=== PATIENT | male | born 1990 | race Caucasian/White ===

== ENCOUNTER 2016-10-31 03:53 | Emergency (ER) | payer BC, OTHER ==
[~2016-10-31] VITALS: Ht 177.8 cm; Wt 108.9 kg
[~2016-10-31 03:53] MED LIST: ALBU17AE3 IH; DOXY100C2 PO; IBUP-1780 PO; METH4TAB PO; NAPR-243 PO; SULF1TAB35 PO; TRM50T PO
--- OUTSIDE RECORDS SUMMARY | 2016-10-31 03:59 | XMS REPORT | Continuity of Care Document ---
Author Author [facility] Organization [facility] Address Unknown Phone Unavailable Care Team Providers Care Supervisor Special Services Name Role Phone NO, LOCAL PHYSICIAN PCP Unavailable Insurance Providers Payer Name Policy Number Subscriber Name Relationship [employer] [id number] David Ho Jr 19 Self / Same As Patient [facility] [id number] David Ho Jr 19 Self / Same As Patient Advance Directives Directive Response Recorded Date/Time Advance Directives No 03/11/16 6:25am Health Care Power of Stage Settings Painter No 03/11/16 6:25am Organ Donor No 03/11/16 6:25am Resuscitation Status Full Code 03/11/16 6:25am Chief Complaint and Reason for Visit Chief Complaint Upper Extremity Reason for Visit Strain of right shoulder Problems Active Problems Medical Problem Onset Date Status Strain of right shoulder Unknown Acute Medications Current Home Medications Medication Dose Units Route Directions Days/Qty Instructions Start Date Ibuprofen 800 Mg 800 Mg Oral Every 8HRS as needed for Pain 20 03/11/16 Past Home Medications Medication Directions Ordered Status Naproxen 500 Mg Tablet, 1 Each Oral Three Times A Day And Prn 10/12/10 Discontinued Naproxen 500 Mg Tablet, 1 Each Oral Three Times A Day And Prn 06/25/11 Discontinued Doxycycline Hyclate (Vibramycin) 100 Mg Capsule, 1 Each Oral Twice A Day 16/09 Discontinued Methylprednisolone 4 Mg/Dose-Pack Tab.ds.pk, 0 Oral As Directed 02/15/12 Discontinued Albuterol 17 Gm Inh, 2 [place] Inhalation Q 4 Hours as needed 02/15/12 Discontinued Social History Social History Problem Response Recorded Date/Time Alcohol Use Denies Use 03/11/2016 6:25am Recreational Drug Use No 03/11/2016 6:25am Recent Foreign Travel No 03/11/2016 6:25am Recent Infectious Disease Exposure No 03/11/2016 6:25am Comments smokes e-cig 03/11/2016 6:25am Smoking Status Current Everyday Smoker 03/11/2016 6:25am Query Response Start Date Stop Date Smoking Status Current Everyday Smoker Hospital Discharge Instructions No hospital discharge instructions. Plan of Care Discharge Date 03/11/16 7:11am Disposition 01 HOME, SELF-CARE Condition at Discharge Improved Instructions/Education Provided Muscle Strain (ED) Prescriptions See Medication Section Referrals SOPHIA THAKKAR,LOCAL PHYSICIAN - Primary Care Physician Additional Instructions/Education Sling for right shoulder this weekend for light duty at work. Follow-up with work comp on Sunday. Tylenol and/or ibuprofen for pain. Return if any problems or questions. All discharge instructions reviewed with patient and/or family. Voiced understanding. Functional Status No functional status results. Allergies, Adverse Reactions, Alerts No known allergies. Immunizations No immunization records. Vital Signs Acute Vital Signs Vital Response Date/Time Temperature (Fahrenheit) 98.0 degrees F (97.6 - 99.5) 03/11/2016 7:11am Temperature (Calculated Celsius) 36.89306 degrees C (36.4 - 37.5) 03/11/2016 7:11am Temperature Source Temporal 03/11/2016 7:11am Pulse Rate (adult) 80 bpm (60 - 90) 03/11/2016 7:11am Respiratory Rate 18 bpm (12 - 24) 03/11/2016 7:11am O2 Sat by Pulse Oximetry 97 % (88 - 100) 03/11/2016 7:11am Blood Pressure 125/74 mm Hg 03/11/2016 7:11am Blood Pressure Mean 94 mm Hg 03/11/2016 6:25am Pain Pain Intensity 8 03/11/2016 7:11am Height (Feet) 5 feet 03/11/2016 6:25am Height (Inches) 9 inches 03/11/2016 6:25am Height (Calculated Centimeters) 175.000836 cm 03/11/2016 6:25am Weight (Pounds) 220 pounds 03/11/2016 6:25am Weight (Calculated Kilograms) 99.768057 kilograms 03/11/2016 6:25am Height 5 ft 9 in Weight 220 lb Body Mass Index 32.5 kg/m^2 Results No known relevant diagnostic tests, laboratory data and/or discharge summary. Procedures No known history of procedures. Encounters Encounter Location Arrival/Admit Date Discharge/Depart Date Attending Provider Departed Emergency Room [facility] 03/11/16 6:18am 03/11 7:11am VALENTINE KATHLEEN MD Recent Diagnosis
--- NOTE | 2016-10-31 04:05 | ED Back Pain ---
General Stated Complaint: LOWER RT SIDE PAIN,STRAIN Source of Information: Patient, RN Notes Reviewed Exam Limitations: No Limitations History of Present Illness Time Seen by Provider: 04:05 Initial Comments As below Location: Other (Right groin area) Timing/Duration: 1-3 Hours Severity: Moderate Pain/Injury Location: Other (right groin ) Method of Injury: Other (was lifting @ the time and felt a pop in his right groin area) Modifying Factors: Improves With Other (nothing helps c/ pain; certain movements/twisting on RLE increases his pain) Associated Symptoms: denies symptoms Allergies and Home Medications Allergies Coded Allergies: No Known Drug Allergies (Unverified , 10/12/10) Home Medications Diclofenac Potassium 50 Mg Tablet #30 50 MG PO Q6H Prescribed by: LEONIE SNEED on 10/31/16 0459 Sulfamethoxazole/Trimethoprim 1 Each Tablet #10 1 EACH PO BID Prescribed by: OMER RAMIREZ on 05/16/161929 Constitutional: see HPI Musculoskeletal: see HPI other (right groin pain) All Other Systems Reviewed Negative Unless Noted: Yes (Negative excepted noted.) Past Ahxctzv-Akkelc-Jouwdk Hx Patient Social History Type Used: Electronic/Vapor Recent Foreign Travel: No Contact w/Someone Who Travel: No Recent Hopitalizations: No Surgeries HX Surgeries: No Respiratory Hx Respiratory Disorders: No Cardiovascular Hx Cardiac Disorders: No Neurological Hx Neurological Disorders: No Reproductive System Hx Reproductive Disorders: No Genitourinary Hx Genitourinary Disorders: No Gastrointestinal Hx Gastrointestinal Disorders: No Musculoskeletal Hx Musculoskeletal Disorders: No Endocrine Hx Endocrine Disorders: No HEENT HX ENT Disorders: No Cancer Hx Cancer: No Psychosocial Hx Psychiatric Problems: No Blood Transfusions Hx Blood Disorders: No Physical Exam Vital Signs Vital Sign - Last 12Hours 10/31/16 04:08 Temp 96.6 Pulse 102 Resp 18 B/P 133/93 Pulse Ox 97 O2 Delivery Room Air Capillary Refill : General Appearance: No Apparent Distress WD/WN Obese Cardiovascular: Regular Rate, Rhythm Respiratory: No Respiratory Distress Extremity: Normal Inspection Neurologic/Psychiatric: Alert Oriented x3 No Motor/Sensory Deficits Skin: Warm/Dry Lymphatic: No Adenopathy Progress/Results/Core Measures Results/Orders My Orders Orders-LEONIE SNEED DO Ct Pelvis Wo (10/31/16 04:08) Naproxen Tablet (Naprosyn Tablet) (10/31/16 05:00) Rx-Tramadol Hcl (Rx-Ultram) (10/31/16 04:55) Rx-Naproxen (Rx-Naprosyn) (10/31/16 05:30) Rx-Naproxen (Rx-Naprosyn) (10/31/16 05:17) Vital Signs/I&O Vital Sign - Last 12Hours 10/31/16 10/31/16 04:08 05:22 Temp 96.6 96.6 Pulse 102 95 Resp 18 18 B/P 133/93 Pulse Ox 97 97 O2 Delivery Room Air Diagnostic Imaging Diagonstic Imaging: CT Plain Films/CT/US/NM/MRI: pelvis Reviewed: Reviewed [place] Study (nothing acute) Departure Impression Impression: Primary Impression: Strain of right quadriceps muscle, fascia and tendon, initial encounter Disposition: 01 HOME, SELF-CARE Condition: Stable Departure-Patient Inst. Decision time for Depature: 04:57 Referrals: JUDAH OWENS MD Patient Instructions: Lower Extremity Muscle Strain (DC) Add. Discharge Instructions: WILL NEED TO FOLLOW UP WITH YOUR COMPANIES WORK COMP PHYSICIAN IF NOT DOING BETTER IN THE NEXT 5-7 DAYS. MAY NEED A MRI IF CONDITION FAILS TO IMPROVE/ RESOLVE. Scripts Diclofenac Potassium 50 Mg Imrupa30 Mg PO Q6H leg/groin pain #30 TAB Ref 0 Prov:LEONIE SNEED DO 10/31/16 LEONIE SNEED DO Oct 31, 2016 04:05
[2016-10-31] MEDS ORDERED: RX-TRAMADOL 50 MG (ULTRAM) TAB PPK#4 PO STA (04:55)
[2016-10-31] MEDS ORDERED: DICL50TA4 PO (04:59)
[2016-10-31] MEDS ORDERED: NAPROXEN 250 MG (NAPROSYN) TABLET PO ONE (05:00)
[2016-10-31] MEDS ORDERED: RX-NAPROXEN (NAPROSYN) 250 MG TAB PPK#4 PO ONE ×2 (05:17→05:30)
[2016-10-31 05:22] VITALS: BP 133/93
--- NOTE | 2016-10-31 08:41 | Diagnostic Imaging Report ---
PROCEDURE: CT pelvis without contrast. TECHNIQUE: Multiple contiguous axial images were obtained through the pelvis without the use of intravenous contrast. Sagittal and coronal reformations were performed. INDICATION: Lower right pelvic pain. FINDINGS: A portion of the appendix is visualized in the upper right pelvis and appears normal. The urinary bladder is normal. There is no free fluid or fluid collection of significance seen in the pelvis. There is no inguinal hernia. No enlarged pelvic or inguinal lymph nodes are seen. Small sclerotic foci in the right acetabulum and in the left femoral neck are most likely related to bony islands. There is degenerative change seen in the L5-S1 disc. IMPRESSION: No acute process. Dictated by: Dictated on workstation # [id number]
== END 2016-10-31 05:22 | disposition home or self-care (01) ==
LOC: EDUNIT# 03:53 → ER 03:55
DX: S76.111A Strain of right quadriceps muscle, fascia and tendon, initial encounter (principal); X50.9XXA Other and unspecified overexertion or strenuous movements or postures, initial encounter; Y93.B3 Activity, free weights; Y99.8 Other external cause status
CPT/HCPCS: 72192; 99283

== ENCOUNTER 2018-10-10 02:01 | Emergency (ER) | payer OTHER, BC | END 2018-10-10 03:19 | disposition home or self-care (01) | LOC: ER 02:01 ==

== ENCOUNTER 2020-10-12 04:21 | Emergency (ER) | payer BC, OTHER ==
[~2020-10-12] VITALS: Ht 177.8 cm; Wt 136.0 kg
[~2020-10-12 04:21] MED LIST changes: +DICL50TA4 PO; +NAPR-915 PO
--- NOTE | 2020-10-12 04:42 | ED Chest Pain ---
General Chief Complaint: Chest Pain Stated Complaint: CHEST PAIN Source: patient History of Present Illness Date Seen by Provider: Oct 12, 2020 Time Seen by Provider: 04:32 Initial Comments PT ARRIVES VIA POV FROM HOME C/O RIGHT UPPER CHEST PAIN SINCE 2018--IS [place] AREA OF PAIN WOKE UP AT 0130 WITH CHEST PAIN AND COULD NOT GET BACK TO SLEEP CONTINUING PROBLEM SINCE 2018, AND IS IN THE EXACT SAME SPOT ALL THE TIME PAIN IS CONSTANT, NEVER GOES AWAY, BUT VARIES IN INTENSITY. HAS BEEN WORSE THE LAST 3 DAYS. RATES PAIN 4/10 AT WORST, RATES 1/10 NOW. IS WORSE WITH LAYING FLAT--IMPROVED BY STANDING UP AND WALKING AROUND. OCCASIONALLY IS WORSE WITH CERTAIN POSITIONS OR MOVEMENTS DENIES ANY GI SYMPTOMS AT THIS TIME, BUT STATES HE FREQUENTLY HAS "HEARTBURN" WITH CERTAIN FOODS--SPICY, ACIDIC, ETC. STATES HE EATS ALOT OF TOMATO-BASED FOODS AND DRINKS ALOT OF V8, TOMATO JUICE, ETC. ADDITIONALLY DRINKS SODA EVERY DAY, AND EATS ALOT OF ACIDIC FOODS--ORANGES, ETC. DENIES ANY ASPIRIN OR NSAID USE PT WORKS FOR [employer]--[employer]OR NO RADIATION OF PAIN NO NAUSEA/VOMITING/DIARRHEA OR ABDOMINAL PAIN NO SWEATS NO COUGH NO SHORTNESS OF BREATH NO SWELLING IN LEGS/ FEET OR PAIN IN CALVES. NO PALPITATIONS NO DIZZINESS OR SYNCOPE NO FEVER OR RECENT ILLNESS IS ON OMEPRAZOLE 40 MG DAILY FOR GERD/POSSIBLEULCERS--NO GI STUDIES HAVE BEEN DONE SYMPTOMS ARE NO DIFFERENT TONIGHT IN ANY WAY, " MADE HIM COME HERE TONIGHT AND GET CHECKED OUT" HAS NOT SOUGHT CARE WITH HIS PCP FOR THIS PROBLEM IN A LONG TIME. LAST SAW DR. CARMONA A COUPLE OF MONTHS AGO FOR ROUTINE EXAM PT DOES NOT SMOKE, RARE ETOH--AND NO RECENT ETOH, NO HX OF DRUG USE NO OTHER CHRONIC ILLNESSES. PCP: DR. Tangela CARMONA Allergies and Home Medications Allergies Coded Allergies: No Known Drug Allergies (Unverified , 10/12/20) Home Medications Diclofenac Potassium 50 Mg Tablet, 50 MG PO Q6H Prescribed by: LEONIE SNEED on 10/31/16 0459 Naproxen 500 Mg Tablet, 500 MG PO BID Prescribed by: RENZO LY on 10/10/18 0248 Sucralfate 1 Gm Tablet, 1 GM PO QID Prescribed by: RENZO LY on 10/12/20 0513 Sulfamethoxazole/Trimethoprim 1 Each Tablet, 1 EACH PO BID Prescribed by: OMER RAMIREZ on 05/16/161929 Patient Home Medication List Home Medication List Reviewed: Yes Review of Systems Review of Systems Constitutional: no symptoms reported EENTM: No Symptoms Reported Respiratory: No Symptoms Reported Cardiovascular: See HPI, Chest Pain Gastrointestinal: See HPI; Denies Abdominal Pain, Denies Constipated, Denies Diarrhea, Denies Nausea, Denies Poor Appetite, Denies Poor Fluid Intake, Denies Vomiting Genitourinary: No Symptoms Reported Musculoskeletal: no symptoms reported; No back pain Skin: no symptoms reported Psychiatric/Neurological: No Symptoms Reported Endocrine: No Symptoms Reported Hematologic/Lymphatic: No Symptoms Reported Past Oaaujil-Istxuo-Shqwtz Hx Past Med/Social Hx: Reviewed and Corrections made Patient Social History Alcohol Use: Rarely Uses Drug of Choice: DENIES Smoking Status: Former Smoker Type Used: Cigarettes Recent Hopitalizations: No Seasonal Allergies Seasonal Allergies: No Past Medical History Surgeries: Yes (WISDOM TEETH REMOVED) Respiratory: No Cardiac: No Neurological: No Genitourinary: No Gastrointestinal: Yes (GERD SYMPTOMS--NO GI STUDIES DONE) Gastroesophageal Reflux Musculoskeletal: No Endocrine: No HEENT: No Cancer: No Psychosocial: No Integumentary: No Blood Disorders: No Family Medical History SOCIAL HISTORY: -ETOH--RARE USE -DRUGS--DENIES USE -SMOKED 1 PPD, QUIT 09/2019 Physical Exam Vital Signs Vital Signs - First Documented 10/12/20 04:30 Temp 37.0 Pulse 102 Resp 18 B/P (MAP) 141/93 (109) Pulse Ox 98 O2 Delivery Room Air Capillary Refill : Height, Weight, BMI Height: 5'10" Weight: 280lbs. oz. 127.114311vr; 32.28 BMI Method:Stated General Appearance: No Apparent Distress, WD/WN; No Obese Neck: Full Range of Motion, Normal Inspection, Non Tender, Supple Respiratory: Chest Non Tender, Normal Breath Sounds, No Accessory Muscle Use, No Respiratory Distress Cardiovascular: Regular Rate, Rhythm, No Edema, No JVD, No Murmur, Normal Peripheral Pulses Gastrointestinal: Normal Bowel Sounds, No Organomegaly, No Pulsatile Mass, Non Tender, Soft Extremity: Normal Capillary Refill, Normal Inspection, Normal Range of Motion, Non Tender, No Calf Tenderness, No Pedal Edema Neurologic/Psychiatric: Alert, Oriented x3, No Motor/Sensory Deficits, Normal Mood/Affect, carton packaging machine operator II-XII Norm as Tested Skin: Normal Color, Warm/Dry; No Rash Progress/Results/Core Measures Results/Orders Lab Results Laboratory Tests Test 10/12/20 04:40 10/12/20 04:43 Range/Units White Blood Count 5.9 4.3-11.0 10^3/uL Red Blood Count 4.85 4.30-5.52 10^6/uL Hemoglobin 13.8 13.3-17.7 g/dL Hematocrit 42 40-54 % Mean Corpuscular Volume 86 80-99 fL Mean Corpuscular Hemoglobin 29 25-34 pg Mean Corpuscular Hemoglobin Concent 33 32-36 g/dL Red Cell Distribution Width 13.4 10.0-14.5 % Platelet Count 175 130-400 10^3/uL Mean Platelet Volume 10.1 9.0-12.2 fL Immature Granulocyte % (Auto) 1 % Neutrophils (%) (Auto) 53 42-75 % Lymphocytes (%) (Auto) 27 12-44 % Monocytes (%) (Auto) 14 H 0-12 % Eosinophils (%) (Auto) 6 0-10 % Basophils (%) (Auto) 0 0-10 % Neutrophils # (Auto) 3.1 1.8-7.8 10^3/uL Lymphocytes # (Auto) 1.6 1.0-4.0 10^3/uL Monocytes # (Auto) 0.8 0.0-1.0 10^3/uL Eosinophils # (Auto) 0.3 0.0-0.3 10^3/uL Basophils # (Auto) 0.0 0.0-0.1 10^3/uL Immature Granulocyte # (Auto) 0.1 0.0-0.1 10^3/uL Prothrombin Time 12.4 12.2-14.7 SEC INR Comment 0.9 0.8-1.4 Activated Partial Thromboplast Time 27 24-35 SEC Sodium Level 137 135-145 MMOL/L Potassium Level 4.0 3.6-5.0 MMOL/L Chloride Level 106 98-107 MMOL/L Carbon Dioxide Level 23 21-32 MMOL/L Anion Gap 8 5-14 MMOL/L Blood Urea Nitrogen 11 7-18 MG/DL Creatinine 0.87 0.60-1.30 MG/DL Estimat Glomerular Filtration Rate > 60 BUN/Creatinine Ratio 13 Glucose Level 130 H 70-105 MG/DL Calcium Level 8.4 L 8.5-10.1 MG/DL Corrected Calcium 8.4 L 8.5-10.1 MG/DL Magnesium Level 2.1 1.6-2.4 MG/DL Total Bilirubin 0.3 0.1-1.0 MG/DL Aspartate Amino Transf (AST/SGOT) 37 H 5-34 U/L Alanine Aminotransferase (ALT/SGPT) 75 H 0-55 U/L Alkaline Phosphatase 145 H 40-136 U/L Total Creatine Kinase 82 30-200 U/L Creatine Kinase MB 0.8 <6.6 NG/ML Myoglobin 27.2 10.0-92.0 NG/ML Troponin I < 0.028 <0.028 NG/ML Total Protein 7.0 6.4-8.2 GM/DL Albumin 4.0 3.2-4.5 GM/DL Amylase Level 47 25-125 U/L Lipase 27 8-78 U/L Serum Alcohol < 10 <10 MG/DL Urine Color YELLOW Urine Clarity CLEAR Urine pH 8.0 5-9 Urine Specific [place] 1.015 L 1.016-1.022 Urine Protein NEGATIVE NEGATIVE Urine Glucose (UA) NEGATIVE NEGATIVE Urine Ketones NEGATIVE NEGATIVE Urine Nitrite NEGATIVE NEGATIVE Urine Bilirubin NEGATIVE NEGATIVE Urine Urobilinogen 0.2 < = 1.0 MG/DL Urine Leukocyte Esterase NEGATIVE NEGATIVE Urine RBC (Auto) NEGATIVE NEGATIVE Urine RBC NONE /HPF Urine WBC NONE /HPF Urine Squamous Epithelial Cells 2-5 /HPF Urine Crystals NONE /LPF Urine Bacteria NEGATIVE /HPF Urine Casts NONE /LPF Urine Mucus NEGATIVE /LPF Urine Culture Indicated NO Urine Opiates Screen NEGATIVE NEGATIVE Urine Oxycodone Screen NEGATIVE NEGATIVE Urine Methadone Screen NEGATIVE NEGATIVE Urine Propoxyphene Screen NEGATIVE NEGATIVE Urine Barbiturates Screen NEGATIVE NEGATIVE Ur Tricyclic Antidepressants Screen NEGATIVE NEGATIVE Urine Phencyclidine Screen NEGATIVE NEGATIVE Urine Amphetamines Screen NEGATIVE NEGATIVE Urine Methamphetamines Screen NEGATIVE NEGATIVE Urine Benzodiazepines Screen NEGATIVE NEGATIVE Urine Cocaine Screen NEGATIVE NEGATIVE Urine Cannabinoids Screen NEGATIVE NEGATIVE My Orders Orders - RENZO LY DO Ekg Tracing (10/12/20 04:32) Monitor-Rhythm Ecg Trace Only (10/12/20 04:32) Chest 1 View, Ap/Pa Only (10/12/20 04:32) Amylase (10/12/20 04:32) Cbc With Automated Diff (10/12/20 04:32) Comprehensive Metabolic Panel (10/12/20 04:32) Creatine Kinase (10/12/20 04:32) Creatine Kinase Mb (10/12/20 04:32) Drug Screen Stat (Urine) (10/12/20 04:32) Lipase (10/12/20 04:32) Magnesium (10/12/20 04:32) Protime With Inr (10/12/20 04:32) Partial Thromboplastin Time (10/12/20 04:32) Ua Culture If Indicated (10/12/20 04:32) Myoglobin Serum (10/12/20 04:32) Troponin I (10/12/20 04:32) Alcohol (10/12/20 04:32) Lidocaine 2% Viscous 15 Ml (Xylocaine Vi (10/12/20 05:30) Antacid Suspension (Mylanta Suspension (10/12/20 05:30) Vital Signs/I&O 10/12/20 10/12/20 04:30 04:30 Temp 37.0 Pulse 102 Resp 18 B/P (MAP) 141/93 (109) Pulse Ox 98 O2 Delivery Room Air Room Air Progress Progress Note : Progress Note UNEVENTFUL ER STAY GIVEN GI COCKTAIL Initial ECG Impression Date: Oct 12, 2020 Initial ECG Impression Time: 04:34 Initial ECG Rate: 86 Initial ECG Rhythm: Normal Sinus Initial ECG Impression: Normal Diagnostic Imaging Comments CXR--NO ACUTE PROCESS, PENDING RADIOLOGIST REVIEW Reviewed: Reviewed by Me Departure Impression Primary Impression: CHRONIC RIGHT UPPER CHEST PAIN Additional Impression: GERD SYMPTOMS Disposition: 01 HOME, SELF-CARE Condition: Stable Departure-Patient Inst. Referrals: SAHIL CARMONA MD (PCP/Family) Primary Care Physician Patient Instructions: Acid Reflux and GERD in Adults (DC), Chest Pain (DC), Chest Pain That Is Not Caused by the Heart (DC) Add. Discharge Instructions: HOME, REST SLEEP WITH HEAD OF BED ELEVATED AT LEAST 30 DEGREES CONTINUE OMPRAZOLE DAILY AVOID CAFFEINE, AVOID ALCOHOL, AVOID SPICY/ACIDIC/GREASY-HIGH FAT FOODS OR DRINKS. AVOID ANY FOOD OR DRINK FOR 2 HOURS BEFORE GOING TO BED FOLLOW UP WITH DR. CARMONA THIS WEEK FOR FURTHER CARE All discharge instructions reviewed with patient and/or family. Voiced understanding. Scripts Sucralfate (Carafate) 1 Gm Tablet 1 GM PO QID, #60 TAB Prov: RENZO LY DO 10/12/20 Images Torso/Trunk 1 - Other-See Progress Note RENZO LY DO Oct 12, 2020 04:42
[2020-10-12 04:45] LABS: BASOPHILS % (AUTO) 0 % (0-10); EOSINOPHILS # (AUTO) 0.3 10^3/uL (0.0-0.3); EOSINOPHILS % (AUTO) 6 % (0-10); HEMATOCRIT 42 % (40-54); HEMOGLOBIN 13.8 g/dL (13.3-17.7); LYMPHOCYTES # (AUTO) 1.6 10^3/uL (1.0-4.0); LYMPHOCYTES % (AUTO) 27 % (12-44); MEAN CORPUSCULAR HEMOGLOBIN 29 pg (25-34); MEAN CORPUSCULAR HGB CONC 33 g/dL (32-36); MEAN CORPUSCULAR VOLUME 86 fL (80-99); MEAN PLATELET VOLUME 10.1 fL (9.0-12.2); MONOCYTES # (AUTO) 0.8 10^3/uL (0.0-1.0); MONOCYTES % (AUTO) 14 % (0-12); NEUTROPHILS # (AUTO) 3.1 10^3/uL (1.8-7.8); NEUTROPHILS % (AUTO) 53 % (42-75); PLATELET COUNT 175 10^3/uL (130-400); WHITE BLOOD COUNT 5.9 10^3/uL (4.3-11.0)
[2020-10-12 04:52] LABS: BILIRUBIN,URINE NEGATIVE (NEGATIVE); CLARITY,URINE CLEAR; COLOR,URINE YELLOW; GLUCOSE, URINE (UA) NEGATIVE (NEGATIVE); KETONES,URINE NEGATIVE (NEGATIVE); LEUKOCYTE ESTERASE ,URINE NEGATIVE (NEGATIVE); NITRITE,URINE NEGATIVE (NEGATIVE); PROTEIN,URINE NEGATIVE (NEGATIVE)
[2020-10-12 04:56] LABS: CHLORIDE 106 MMOL/L (98-107)
[2020-10-12 04:57] LABS: SODIUM 137 MMOL/L (135-145)
[2020-10-12 04:58] LABS: AMYLASE 47 U/L (25-125); CALCIUM 8.4 MG/DL (8.5-10.1); INR 0.9 (0.8-1.4); PROTHROMBIN TIME PATIENT 12.4 SEC (12.2-14.7)
[2020-10-12 04:59] LABS: GLUCOSE 130 MG/DL (70-105)
[2020-10-12 05:00] LABS: CARBON DIOXIDE 23 MMOL/L (21-32)
[2020-10-12 05:01] LABS: AMPHETAMINE SCREEN, URINE NEGATIVE (NEGATIVE); BARBITURATE SCREEN URINE NEGATIVE (NEGATIVE); BENZODIAZEPINES SCREEN URINE NEGATIVE (NEGATIVE); CANNABINOID SCREEN, URINE NEGATIVE (NEGATIVE); COCAINE SCREEN URINE NEGATIVE (NEGATIVE); METHADONE STAT NEGATIVE (NEGATIVE); METHAMPHETAMINE SCREEN URINE S NEGATIVE (NEGATIVE); OPIATE SCREEN URINE NEGATIVE (NEGATIVE); OXYCODONE STAT NEGATIVE (NEGATIVE); PROPOXYPHENE STAT NEGATIVE (NEGATIVE); TRICYCLIC ANTIDEPRESSANTS SCRE NEGATIVE (NEGATIVE)
[2020-10-12 05:01] LABS: BILIRUBIN,TOTAL 0.3 MG/DL (0.1-1.0)
[2020-10-12 05:02] LABS: BACTERIA,URINE NEGATIVE /HPF
[2020-10-12 05:02] LABS: ALKALINE PHOSPHATASE 145 U/L (40-136)
[2020-10-12 05:03] LABS: CREATININE SERUM 0.87 MG/DL (0.60-1.30); GFR ESTIMATED > 60
[2020-10-12 05:04] LABS: BUN/CREATININE RATIO 13
[2020-10-12 05:06] LABS: ALANINE AMINOTRANSFERASE 75 U/L (0-55); MAGNESIUM 2.1 MG/DL (1.6-2.4)
[2020-10-12 05:07] LABS: CREATINE KINASE 82 U/L (30-200); LIPASE 27 U/L (8-78)
[2020-10-12] MEDS ORDERED: SUCR1TAB36 PO (05:13)
[2020-10-12 05:14] LABS: CREATINE KINASE MB 0.8 NG/ML (<6.6)
[2020-10-12] MEDS ORDERED: LIDOCAINE 2% VISCOUS 15 ML UDC PO ONE (05:30)
[2020-10-12] MEDS ORDERED: ANTACID SUSP 30 ML UDC (MYLANTA) PO ONE (05:30)
[2020-10-12 05:38] VITALS: BP 111/87
--- NOTE | 2020-10-12 05:47 | Diagnostic Imaging Report ---
INDICATION: Chest pain. TECHNIQUE: Single view chest 5:09 AM. CORRELATION STUDY: 02/15/2012 FINDINGS: The heart size, mediastinal configuration and pulmonary vascularity are within normal limits. The lungs are clear with no consolidating infiltrate. There is no significant effusion or pneumothorax. IMPRESSION: 1. Negative for acute abnormality of the chest. Dictated by: Dictated on workstation # [id number]
== END 2020-10-12 05:38 | disposition home or self-care (01) ==
LOC: EDUNIT# 04:21 → ER 04:24
DX: R07.9 Chest pain, unspecified (principal); K21.9 Gastro-esophageal reflux disease without esophagitis; Z87.891 Personal history of nicotine dependence
CPT/HCPCS: 71045; 80053; 80306; 81000; 82150; 82550; 82553; 83690; 83735; 83874; 84484; 85025; 85610; 85730; 93005; 93041; G0480; 36415; 80320

== ENCOUNTER → 2020-12-20 | Outpatient (CLI) | payer BC ==
[~2020-12-20] MED LIST changes: +SUCR1TAB36 PO
--- NOTE | 2020-12-20 16:50 | Diagnostic Imaging Report ---
EXAMINATION: Right foot 3 views HISTORY: Right foot pain. COMPARISON: None available. FINDINGS: Alignment is normal. No fracture is seen. Joint spaces are normal. IMPRESSION: 1. No fracture. Dictated by: Dictated on workstation # [id number]
== END ==
LOC: RAD 16:21
PROVIDERS: ATTEND Family Medicine
DX: M79.671 Pain in right foot (principal)
CPT/HCPCS: 73630